=== PATIENT | female | born 1940 | race Caucasian/White ===

== ENCOUNTER 2018-03-23 06:51 | Inpatient (IN) | payer MEDICARE, OTHER ==
[~2018-03-23] VITALS: Ht 160 cm; Wt 101.5 kg
[~2018-03-23 06:51] MED LIST: ASCO1500 PO; CEPH250 PO; CHOL200074 PO; CLOP75TA14 PO; CYAN100T PO; GLIM2TAB3 PO; INDA2.5T5 PO; LOSA25TA16 PO; METF-446 PO; METO-391 PO; OMEP20CA10 PO; PLAN450T PO; PYRI25TA3 PO; SPIR25TA6 PO; VIT1CAPS5 PO
[2018-03-23] MEDS ORDERED: ONDANSETRON HCL 4 MG/2 ML VIAL ONE (07:08)
[2018-03-23 07:39] LABS: BASOPHILS % (AUTO) 0.4 % (0.0-5.0); EOSINOPHILS % (AUTO) 0.6 % (0.0-8.0); HEMATOCRIT 37.6 % (36-48); MEAN CORPUSCULAR HEMOGLOBIN 33.9 pg (27.0-33.0); MEAN CORPUSCULAR HGB CONC 34.8 g/dL (32.0-36.0); MEAN CORPUSCULAR VOLUME 97.6 fL (79-99); MONOCYTES % (AUTO) 9.5 % (3.0-13.0); NEUTROPHILS % (AUTO) 83.5 % (40.0-77.0); NUCLEATED RED BLOOD CELLS 0.1 % (0.0-0.19); PLATELET COUNT (AUTO) 125 K/uL (130-400); RED BLOOD CELL COUNT(AUTO) 3.85 MIL/uL (4.00-5.50); RED CELL DISTRIBUTION WIDTH 13.9 % (11.0-15.5); WHITE BLOOD COUNT (AUTO) 10.8 K/uL (4.8-10.8)
[2018-03-23 07:49] LABS: CREATININE 1.1 mg/dL (0.5-1.5); POTASSIUM 4.5 mmol/L (3.5-5.1)
[2018-03-23 07:55] LABS: ALBUMIN 3.7 g/dL (3.5-5.0); BILIRUBIN,TOTAL 1.6 mg/dL (0.2-1.0); TOTAL PROTEIN, SERUM 7.6 g/dL (6.0-8.3)
[2018-03-23 08:03] LABS: INR 1.08 (0.85-1.15); PARTIAL THROMBOPLASTIN TIME 31.1 SEC (26.3-35.5); PROTHROMBIN TIME 11.3 SEC (9.6-11.6)
[2018-03-23 08:06] LABS: APPEARANCE,URINE Clear (CLEAR); BILIRUBIN,URINE Negative (NEGATIVE); COLOR,URINE Yellow (YELLOW); GLUCOSE, URINE (UA) Negative (NEGATIVE); KETONES,URINE Negative (NEGATIVE); LEUKOCYTE ESTERASE ,URINE Trace (NEGATIVE); NITRATE,URINE Negative (NEGATIVE); OCCULT BLOOD,URINE Negative (NEGATIVE); PROTEIN,URINE Negative (NEGATIVE)
[2018-03-23 08:34] LABS: BACTERIA,URINE Few /HPF (None Seen); RBC,URINE 0-1 /HPF (0-1); WBC,URINE 0-1 /HPF (0-1)
[2018-03-23] MEDS ORDERED: KETOROLAC TROMETHAMINE 15MG/ML ONE (10:03)
[2018-03-23] MEDS ORDERED: LACTATED RINGERS 1000ML 1,000 ML IV ONE (14:09)
[2018-03-23] MEDS ORDERED: MORPHINE SULFATE 2 MG/ML 1ML SYG ONE (15:32)
[2018-03-23 16:35] VITALS: BP 150/72
[2018-03-23 17:20] VITALS: BP 137/74
[2018-03-23] MEDS: LACTATED RINGERS 1000ML 1,000 ML IV SCH (18:00)
[2018-03-23 19:30] VITALS: BP 146/73
[2018-03-23] MEDS ORDERED: PYRI1I IM (20:10)
[2018-03-24] VITALS (7 sets, daily range): BP systolic 125–138; BP diastolic 52–77
[2018-03-24 05:58] LABS: BASOPHILS % (AUTO) 0.5 % (0.0-5.0); EOSINOPHILS % (AUTO) 1.7 % (0.0-8.0); HEMATOCRIT 33.6 % (36-48); LYMPHOCYTES % (AUTO) 9.6 % (21.0-51.0); MEAN CORPUSCULAR HEMOGLOBIN 34.6 pg (27.0-33.0); MEAN CORPUSCULAR HGB CONC 35.5 g/dL (32.0-36.0); MEAN CORPUSCULAR VOLUME 97.6 fL (79-99); MONOCYTES % (AUTO) 10.2 % (3.0-13.0); PLATELET COUNT (AUTO) 129 K/uL (130-400); RED BLOOD CELL COUNT(AUTO) 3.44 MIL/uL (4.00-5.50); RED CELL DISTRIBUTION WIDTH 13.9 % (11.0-15.5); WHITE BLOOD COUNT (AUTO) 8.3 K/uL (4.8-10.8)
[2018-03-24 06:08] LABS: CREATININE 1.1 mg/dL (0.5-1.5)
[2018-03-24] MEDS: LACTATED RINGERS 1000ML 1,000 ML IV SCH (06:48)
[2018-03-24] MEDS: ENOXAPARIN SODIUM 30 MG/0.3 ML SQ SCH (08:57)
[2018-03-24] MEDS: LOSARTAN 50 MG TABLET PO SCH ×2 (10:57→21:32)
[2018-03-24] MEDS: METFORMIN HCL 500 MG TABLET PO SCH (16:38)
[2018-03-24] MEDS: CEFTRIAXONE SODIUM 2 GM VIAL IVP SCH (18:12)
[2018-03-24] MEDS: METOPROLOL TARTRATE 25 MG TAB PO SCH (21:32)
[2018-03-24] MEDS: MORPHINE SULFATE 2 MG/ML 1ML SYG IV PRN ×2 (23:04)
[2018-03-25] VITALS (7 sets, daily range): BP systolic 117–133; BP diastolic 57–75
[2018-03-25] MEDS: LACTATED RINGERS 1000ML 1,000 ML IV SCH ×2 (03:11→23:00)
[2018-03-25 05:54] LABS: BASOPHILS % (AUTO) 0.8 % (0.0-5.0); EOSINOPHILS % (AUTO) 4.1 % (0.0-8.0); HEMATOCRIT 34.8 % (36-48); LYMPHOCYTES % (AUTO) 13.2 % (21.0-51.0); MEAN CORPUSCULAR HEMOGLOBIN 33.5 pg (27.0-33.0); MEAN CORPUSCULAR HGB CONC 34.4 g/dL (32.0-36.0); MEAN CORPUSCULAR VOLUME 97.4 fL (79-99); MONOCYTES % (AUTO) 10.4 % (3.0-13.0); NEUTROPHILS % (AUTO) 71.5 % (40.0-77.0); NUCLEATED RED BLOOD CELLS 0.1 % (0.0-0.19); PLATELET COUNT (AUTO) 129 K/uL (130-400); RED BLOOD CELL COUNT(AUTO) 3.57 MIL/uL (4.00-5.50); RED CELL DISTRIBUTION WIDTH 13.8 % (11.0-15.5); WHITE BLOOD COUNT (AUTO) 6.1 K/uL (4.8-10.8)
[2018-03-25 06:13] LABS: BILIRUBIN,TOTAL 1.2 mg/dL (0.2-1.0); CREATININE 1.1 mg/dL (0.5-1.5); POTASSIUM 3.8 mmol/L (3.5-5.1); TOTAL PROTEIN, SERUM 6.9 g/dL (6.0-8.3)
[2018-03-25] MEDS: PANTOPRAZOLE SODIUM 40 MG TABLET.DR PO SCH (07:01)
[2018-03-25] MEDS: INDAPAMIDE 2.5 MG PO SCH (09:00)
[2018-03-25] MEDS: METOPROLOL TARTRATE 25 MG TAB PO SCH ×2 (09:22→20:07)
[2018-03-25] MEDS: METFORMIN HCL 500 MG TABLET PO SCH ×2 (09:22→17:00)
[2018-03-25] MEDS: CLOPIDOGREL BISULFATE 75 MG TAB PO SCH (09:22)
[2018-03-25] MEDS: GLIMEPIRIDE 2 MG TABLET PO SCH (09:22)
[2018-03-25] MEDS: ENOXAPARIN SODIUM 30 MG/0.3 ML SQ SCH (09:23)
[2018-03-25] MEDS: ONDANSETRON HCL 4 MG/2 ML VIAL IV PRN ×2 (13:28→18:30)
[2018-03-25] MEDS: CEFTRIAXONE SODIUM 2 GM VIAL IVP SCH (18:29)
[2018-03-25] MEDS: LOSARTAN 50 MG TABLET PO SCH (20:07)
[2018-03-26 04:05] VITALS: BP 124/61
[2018-03-26 05:36] LABS: BASOPHILS % (AUTO) 1.3 % (0.0-5.0); EOSINOPHILS % (AUTO) 4.9 % (0.0-8.0); HEMATOCRIT 33.3 % (36-48); LYMPHOCYTES % (AUTO) 17.3 % (21.0-51.0); MEAN CORPUSCULAR HEMOGLOBIN 34.1 pg (27.0-33.0); MEAN CORPUSCULAR HGB CONC 34.8 g/dL (32.0-36.0); MEAN CORPUSCULAR VOLUME 97.9 fL (79-99); MONOCYTES % (AUTO) 11.5 % (3.0-13.0); PLATELET COUNT (AUTO) 160 K/uL (130-400); RED CELL DISTRIBUTION WIDTH 13.7 % (11.0-15.5); WHITE BLOOD COUNT (AUTO) 4.6 K/uL (4.8-10.8)
[2018-03-26 05:52] LABS: CREATININE 1.1 mg/dL (0.5-1.5); POTASSIUM 4.2 mmol/L (3.5-5.1)
[2018-03-26] MEDS: PANTOPRAZOLE SODIUM 40 MG TABLET.DR PO SCH (06:09)
[2018-03-26] MEDS: ONDANSETRON HCL 4 MG/2 ML VIAL IV PRN (07:43)
[2018-03-26] MEDS: METOPROLOL TARTRATE 25 MG TAB PO SCH (07:43)
[2018-03-26] MEDS: CLOPIDOGREL BISULFATE 75 MG TAB PO SCH (07:43)
[2018-03-26] MEDS: GLIMEPIRIDE 2 MG TABLET PO SCH (07:44)
[2018-03-26] MEDS: ENOXAPARIN SODIUM 30 MG/0.3 ML SQ SCH (07:45)
[2018-03-26] MEDS: METFORMIN HCL 500 MG TABLET PO SCH (07:54)
[2018-03-26 08:38] VITALS: BP 113/65
[2018-03-26] MEDS: INDAPAMIDE 2.5 MG PO SCH (09:00)
[2018-03-26 12:02] VITALS: BP 108/66
== END 2018-03-26 14:30 | disposition home or self-care (01) | DRG 439 ==
LOC: EDH 06:51 → EDHIP 10:34 → 3CH 17:36 → 3DH 03-24 15:21
PROVIDERS: ADMIT Hospitalist; ATTEND Hospitalist
PROC: 3E0234Z Introduction of Serum, Toxoid and Vaccine into Muscle, Percutaneous Approach (ICD-10-PCS; principal; 2018-03-23)
DX: K85.90 Acute pancreatitis without necrosis or infection, unspecified (principal); E44.1 Mild protein-calorie malnutrition; E11.9 Type 2 diabetes mellitus without complications; E78.5 Hyperlipidemia, unspecified; H54.8 Legal blindness, as defined in USA; H35.30 Unspecified macular degeneration; M06.9 Rheumatoid arthritis, unspecified; I11.0 Hypertensive heart disease with heart failure; I25.10 Atherosclerotic heart disease of native coronary artery without angina pectoris; I50.9 Heart failure, unspecified; Z95.5 Presence of coronary angioplasty implant and graft; Z90.710 Acquired absence of both cervix and uterus; Z86.73 Personal history of transient ischemic attack (TIA), and cerebral infarction without residual deficits; Z85.6 Personal history of leukemia; Z23 Encounter for immunization; Z80.0 Family history of malignant neoplasm of digestive organs
CPT/HCPCS: 36415; 71045; 74176; 76705; 80048; 80053; 81001; 82150; 82550; 82948; 83690; 84484; 85025; 85610; 85730; 93005; A4218; G0008; J0696; J1650; J1885; J2405; J7120; Q2038

== ENCOUNTER → 2018-04-03 | Outpatient (CLI) | payer MEDICARE, OTHER ==
[~2018-04-03] MED LIST changes: -ASCO1500 PO; -CEPH250 PO; -PLAN450T PO; +PYRI1I IM; -PYRI25TA3 PO; -VIT1CAPS5 PO
[2018-04-03 10:18] LABS: BASOPHILS % (AUTO) 1.1 % (0.0-5.0); EOSINOPHILS % (AUTO) 2.2 % (0.0-8.0); HEMATOCRIT 37.1 % (36-48); MEAN CORPUSCULAR HEMOGLOBIN 33.9 pg (27.0-33.0); MEAN CORPUSCULAR HGB CONC 34.8 g/dL (32.0-36.0); MEAN CORPUSCULAR VOLUME 97.5 fL (79-99); MONOCYTES % (AUTO) 8.5 % (3.0-13.0); NEUTROPHILS % (AUTO) 72.2 % (40.0-77.0); PLATELET COUNT (AUTO) 199 K/uL (130-400); RED BLOOD CELL COUNT(AUTO) 3.81 MIL/uL (4.00-5.50); RED CELL DISTRIBUTION WIDTH 13.9 % (11.0-15.5); WHITE BLOOD COUNT (AUTO) 6.2 K/uL (4.8-10.8)
[2018-04-03 10:25] LABS: ALBUMIN 3.9 g/dL (3.5-5.0); BILIRUBIN,TOTAL 0.7 mg/dL (0.2-1.0); CREATININE 1.2 mg/dL (0.5-1.5); POTASSIUM 3.9 mmol/L (3.5-5.1); TOTAL PROTEIN, SERUM 7.6 g/dL (6.0-8.3)
[2018-04-03 10:37] LABS: INR 1.1 (0.85-1.15); PROTHROMBIN TIME 11.5 SEC (9.6-11.6)
[2018-04-04 10:21] LABS: HEPATITIS Bs ANTIGEN SCREEN P Negative (Negative)
== END | disposition home or self-care (01) ==
LOC: RAH 09:11
PROVIDERS: ATTEND Physical Medicine & Rehabilitation
DX: M17.11 Unilateral primary osteoarthritis, right knee (principal); M16.11 Unilateral primary osteoarthritis, right hip; K85.90 Acute pancreatitis without necrosis or infection, unspecified; R19.7 Diarrhea, unspecified; R93.3 Abnormal findings on diagnostic imaging of other parts of digestive tract
CPT/HCPCS: 36415; 73502; 73562; 80053; 82172; 82247; 82977; 83010; 83883; 84460; 85025; 85610; 86704; 86706; 87340; 87520

== ENCOUNTER 2018-04-17 06:44 | Day surgery (SDC) | payer MEDICARE, OTHER ==
[2018-04-17] VITALS (8 sets, daily range): BP systolic 101–130; BP diastolic 52–73
[~2018-04-17] VITALS: Ht 157.5 cm; Wt 97.4 kg
[~2018-04-17 06:44] MED LIST changes: +SODIUM CHLORIDE 0.9% 1000ML 1,000 ML IV ONE
[2018-04-17] MEDS ORDERED: LIDOCAINE HCL 1% 20 ML VIAL ONE (10:10)
[2018-04-17] MEDS ORDERED: MIDAZOLAM HCL 1 MG/ML 2ML VIAL ONE (10:10)
[2018-04-17] MEDS ORDERED: PROPOFOL 10 MG/ML 20ML VIAL IV ONE (10:10)
== END 2018-04-17 13:15 | disposition home or self-care (01) ==
LOC: ENDO 06:44 → DAH 06:44 → ENDO 13:15
PROVIDERS: ATTEND Internal Medicine
DX: I85.00 Esophageal varices without bleeding (principal); K86.9 Disease of pancreas, unspecified; K31.89 Other diseases of stomach and duodenum; I11.0 Hypertensive heart disease with heart failure; I50.9 Heart failure, unspecified; I25.10 Atherosclerotic heart disease of native coronary artery without angina pectoris; Z86.73 Personal history of transient ischemic attack (TIA), and cerebral infarction without residual deficits; M81.0 Age-related osteoporosis without current pathological fracture; E11.9 Type 2 diabetes mellitus without complications; M19.90 Unspecified osteoarthritis, unspecified site; C95.90 Leukemia, unspecified not having achieved remission; Z95.0 Presence of cardiac pacemaker; Z90.710 Acquired absence of both cervix and uterus; Z68.39 Body mass index [BMI] 39.0-39.9, adult; Z79.899 Other long term (current) drug therapy; Z79.84 Long term (current) use of oral hypoglycemic drugs; Z80.0 Family history of malignant neoplasm of digestive organs
CPT/HCPCS: 43237; 43244; 82948 ×3; A4606; J2250; J2704; J7030; 43232

== ENCOUNTER 2018-06-27 05:58 | Day surgery (SDC) | payer MEDICARE, OTHER ==
[~2018-06-27] VITALS: Ht 160 cm; Wt 97.1 kg
[~2018-06-27 05:58] MED LIST changes: -CLOP75TA14 PO; -LOSA25TA16 PO; +LOSA25TA41 PO
[2018-06-27 06:28] VITALS: BP 133/64
[2018-06-27] MEDS ORDERED: CLOP75TA32 PO (06:42)
[2018-06-27] MEDS ORDERED: PROPOFOL 10 MG/ML 20ML VIAL IV ONE (06:58)
[2018-06-27] MEDS ORDERED: PHENYLEPHRINE HCL 10 MG/ML 1ML VIAL IV ONE (07:07)
[2018-06-27 07:10] VITALS: BP 97/50
[2018-06-27 07:20] VITALS: BP 92/51
[2018-06-27 07:25] VITALS: BP 110/57
[2018-06-27 07:35] VITALS: BP 115/54
== END 2018-06-27 07:45 | disposition home or self-care (01) ==
LOC: DAH 05:58 → ENDO 05:58
PROVIDERS: ATTEND Internal Medicine
DX: K31.7 Polyp of stomach and duodenum (principal); K74.60 Unspecified cirrhosis of liver; K31.89 Other diseases of stomach and duodenum; I85.10 Secondary esophageal varices without bleeding; I11.0 Hypertensive heart disease with heart failure; I50.9 Heart failure, unspecified; I25.10 Atherosclerotic heart disease of native coronary artery without angina pectoris; Z86.73 Personal history of transient ischemic attack (TIA), and cerebral infarction without residual deficits; M81.0 Age-related osteoporosis without current pathological fracture; E11.9 Type 2 diabetes mellitus without complications; M19.90 Unspecified osteoarthritis, unspecified site; Z95.0 Presence of cardiac pacemaker; Z90.710 Acquired absence of both cervix and uterus; Z98.890 Other specified postprocedural states; Z79.899 Other long term (current) drug therapy; Z68.37 Body mass index [BMI] 37.0-37.9, adult; K21.9 Gastro-esophageal reflux disease without esophagitis
CPT/HCPCS: 43239; 82948; 88305; 88312; 88342; 93005; A4606; J2370; J2704; J7030

== ENCOUNTER 2018-10-28 05:22 | Emergency (ER) | payer MEDICARE, OTHER ==
[~2018-10-28 05:22] MED LIST changes: +CLOP75TA32 PO; -CYAN100T PO; +CYAN100T3 PO; -SODIUM CHLORIDE 0.9% 1000ML 1,000 ML IV ONE
[2018-10-28] MEDS ORDERED: TETRACAINE HCL 0.5% 4 ML OPHTH SOLN ONE (06:14)
[2018-10-28] MEDS ORDERED: FLUORESCEIN SODIUM 1 STRIP STRIP ONE (06:20)
[2018-10-28] MEDS ORDERED: ERYTHROMYCIN BASE 0.5% OPHTH OINT 1 GM TUBE ONE (07:41)
== END 2018-10-28 08:11 | disposition home or self-care (01) ==
LOC: EDH 05:22
DX: S05.02XA Injury of conjunctiva and corneal abrasion without foreign body, left eye, initial encounter (principal); E11.9 Type 2 diabetes mellitus without complications; I11.0 Hypertensive heart disease with heart failure; I50.9 Heart failure, unspecified; Z86.73 Personal history of transient ischemic attack (TIA), and cerebral infarction without residual deficits; Z90.710 Acquired absence of both cervix and uterus; X58.XXXA Exposure to other specified factors, initial encounter; Y93.89 Activity, other specified; Y92.89 Other specified places as the place of occurrence of the external cause; Y99.8 Other external cause status

== ENCOUNTER → 2020-07-20 | Outpatient (CLI) | payer MEDICARE, OTHER ==
[~2020-07-20] MED LIST changes: -CYAN100T3 PO; +CYAN100T45 PO; -GLIM2TAB3 PO; +GLIM2TAB30 PO; -OMEP20CA10 PO; +OMEP20CA12 PO
== END | disposition home or self-care (01) ==
LOC: RAH 10:00
PROVIDERS: ATTEND Internal Medicine Cardiovascular Disease
DX: R01.1 Cardiac murmur, unspecified (principal)
CPT/HCPCS: 93306; 93356